=== PATIENT | female | born 2000 | race Caucasian/White ===

== ENCOUNTER 2020-10-12 12:13 | Emergency (ER) | payer MEDICAID, SELFPAY ==
--- NOTE | ~2020-10-12 | XR_ITS ---
EXAMINATION: XR CHEST CLINICAL INFORMATION: Pain. COMPARISON: None TECHNIQUE: 2 views of the chest were obtained. FINDINGS: No significant abnormality is noted involving the heart, lungs, mediastinum, bony thorax or soft tissues. XR/XR chest 2V IMPRESSION: Unremarkable examination.
[2020-10-12 12:51] VITALS: BP 114/69; PULSE 89; RESP 16; TEMP 37; O2SAT 99; BMI 29.6
--- NOTE | 2020-10-12 13:39 | ED_ITS ---
HPI - General Adult General Chief complaint: General Medical Stated complaint: chest pain Time Seen by Provider: 10/12/20 13:39 History of Present Illness HPI narrative: Patient complains of left-sided chest pain worse with certain movements deep breath when she lays on that side and when she touches the area, denies any shortness of breath no rash no control pills no leg pain or calf pain Related Data Previous Rx's Medication Instructions Recorded ibuprofen 600 mg PO Q6H PRN #20 tab 10/12/20 Allergies Allergy/AdvReac Type Severity Reaction Status Date / Time No Known Allergies Allergy Verified 10/12/20 12:53 Review of Systems Review of Systems: General appearance comfortable no acute distress Head is normocephalic atraumatic Neck is supple The chest wall did have tenderness to the anterior chest wall on the left side, pain is reproduced with deep breath and movement The lungs were clear to auscultation bilateral with symmetric equal breath sounds Heart no murmur The abdomen soft nontender Extremities full range of motion x4 There is no calf swelling or tenderness There is no pedal edema No skin rash No motor or sensory deficit Yes all other systems are reviewed and are negative [facility] Past Medical History Medical History (Updated 10/13/20 @ 00:01 by Rico Forman) No known health problems Social History Social History Advance Directives: No Advance Directives Information Provided: No Patient : No Physical Exam Vital Signs: Vital Signs: Last Vital Signs Temp 98.6 F 10/12/20 12:51 Pulse 89 10/12/20 12:51 Resp 16 10/12/20 12:51 BP 114/69 10/12/20 12:51 Pulse Ox 99 10/12/20 12:51 Body Mass Index 29.6 Course Course Course Narrative: EKG was a normal sinus rhythm with a rate of 85, normal intervals, QTC was normal, no acute ST changes no acute ischemic changes Chest x-ray was normal no pneumothorax no pneumonia Perc score was 0, patient has no shortness of breath no leg swelling, cardiac unlikely Most likely is inflammation of muscles or cartilage in the chest wall and patient is treated for that and will return any time if worse Discharge Plan Discharge Clinical Impression: Costochondritis Patient Disposition: Home, Self-Care Additional Instructions: EKG did not show any heart abnormality Chest x-ray did not show any lung abnormality Exam is consistent with muscle or cartilage irritation in the chest wall Return any time for any worse condition or concern neck slime follow with your doctor in 2-3 days if not improved Prescriptions: New ibuprofen 600 mg tablet 600 mg PO Q6H PRN (Reason: pain) Qty: 20 RF: 0 Stand Alone Forms: Work/School Release Interventions: ED Discharge Assessment Last Done: 10/12/20 15:15 Discharge Date/Time: 10/12/20 15:16
--- NOTE | 2020-10-12 13:45 | ECG_ITS ---
Test Reason : GENERAL MEDICINE Blood Pressure : / mmHG Vent. Rate : 085 BPM Atrial Rate : 085 BPM P-R Int : 166 ms QRS Dur : 076 ms QT Int : 372 ms P-R-T Axes : 047 060 046 degrees QTc Int : 442 ms Normal sinus rhythm Normal ECG No previous ECGs available Referred By: Demario Arzola Electronically Signed By:MIGNON DUBON
== END 2020-10-12 15:16 | disposition home or self-care (01) ==
PROVIDERS: Emergency Provider Emergency Medicine Emergency Medical Services; PCP Nurse Practitioner Family
DX: M94.0 Chondrocostal junction syndrome [Tietze] (principal)
CPT/HCPCS: 71046; 93005; 99283

== ENCOUNTER 2021-03-18 11:57 | Emergency (ER) | payer MEDICAID, SELFPAY ==
[2021-03-18 12:02] VITALS: BP 115/76; PULSE 85; RESP 16; TEMP 36.9; O2SAT 97; BMI 29.6
[2021-03-18 12:29] LABS: IDNOW Serial# 08D9AD1C; Strep A Nucleic Acid Negative (Negative)
[2021-03-18 13:01] LABS: Influenza A PCR NEGATIVE (Negative); Influenza B PCR NEGATIVE (Negative); Resp Syncy Virus RNA Qual PCR NEGATIVE (Negative); SARS COV2 PCR INHOUSE NEGATIVE (Negative)
--- NOTE | 2021-03-18 15:14 | ED_ITS ---
HPI - General Adult General Chief complaint: General Medical Stated complaint: fever, chest discomfort, back pain, sore throat Time Seen by Provider: 03/18/21 15:14 Source: patient Mode of arrival: ambulatory Limitations: no limitations History of Present Illness HPI narrative: Sore throat, headache and fever starting yesterday. Slight congestion, question of green phlegm. Patient had COVID last 04/20. Patient is vaccinated, rapid test yesterday was negative. Onset (ago): day(s) Associated symptoms: cough, fever/chills and other (sore throat) Related Data Previous Rx's Medication Instructions Recorded ibuprofen 600 mg tablet 600 mg PO Q6H PRN #20 tab 10/12/20 Allergies Allergy/AdvReac Type Severity Reaction Status Date / Time No Known Allergies Allergy Verified 10/12/20 12:53 Review of Systems Constitutional: Constitutional: Reports no additional constitutional complaints Eyes: Eyes: Reports no additional eye complaints ENT: Denies dizziness Cardiovascular: Cardiovascular: Reports no additional cardiovascular c omplaints Respiratory: Respiratory: Reports as per HPI Gastrointestinal: Gastrointestinal: Reports no additional gastrointestinal complaints Genitourinary: Genitourinary: Reports no additional female genitourinary complaints Musculoskeletal: Musculoskeletal: Reports no additional musculoskeletal complaints Integumentary/Breasts: Skin/Breast: Denies rash Neurologic: Reports system reviewed and no additional complaints, except as documented, Denies dizziness and Denies Sensory deficit (Neuro) Psychiatric: Psychiatric: Denies anxiety [facility] Past Medical History Medical History (Updated 03/18/21 @ 15:21 by João Lemus MD) No known health problems Social History Social History Advance Directives: No Advance Directives Information Provided: No Patient : No Physical Exam Vital Signs: Vital Signs: Last Vital Signs Temp 98.4 F 03/18/21 12:02 Pulse 85 03/18/21 12:02 Resp 16 03/18/21 12:02 BP 115/76 03/18/21 12:02 Pulse Ox 97 03/18/21 12:02 Body Mass Index 29.6 Const: General: healthy appearing Nutritional Appearance: average body habitus Orientation/consciousness: oriented to person and patient oriented x3 Limitations: no limitations HENMT: Head: Yes normal to inspection Ears: external ears normal General nose exam: Normal external nose present Mouth: Normal oral and palatal mucosa present and oropharynx normal Throat: Yes posterior oropharynx normal Eyes: General: appearance normal, both eyes and all related structures Neck: Other: supple Neck: Yes normal visual inspection Chest: Chest palpation & inspection: normal inspection of the chest Resp: Auscultation: clear to auscultation bilaterally Cardio: Jugular venous distension: no JVD Rate: regular rate Rhythm: regular rhythm Heart sounds: S1 normal heart sound present and S2 normal heart sound present GI: Inspection: Yes normal to inspection Palpation (GI): Soft to palpation, nontender and No hepatosplenomegaly present Auscultation: normal bowel sounds : General: Yes no CVA tenderness Back/Spine/Pelvis: Back: no CVA tenderness Skin: General skin exam: no rashes or lesions noted Neuro: General: oriented to person and patient oriented x3 Cranial nerves: Yes CN's II-XII intact bilaterally Motor exam (neuro): 5/5 motor strength present throughout Sensory Exam: No Sensory deficit (Neuro) Extrem: General: Yes normal to inspection Psych: Appearance: grossly normal Course Reevaluation(s) Reevaluation #1: patient with viral illness, RSV, COVID and flu and strep all negative will dc home Time: 15:20 Medical Decision Making Lab Data Labs: Lab Results 03/18/21 03/18/21 Range/Units 12:07 12:08 Influenza Type A (PCR) NEGATIVE (Negative) Influenza Type B (PCR) NEGATIVE (Negative) RSV RNA Qual (PCR) NEGATIVE (Negative) SARS-CoV-2 RNA (RT-PCR) NEGATIVE (Negative) S. pyogenes GrpA TIMMY Negative (Negative) Discharge Plan Discharge Clinical Impression: Upper respiratory infection Qualifiers: URI type: unspecified URI Qualified Code(s): J06.9 - Acute upper respiratory infection, unspecified Patient Disposition: Home, Self-Care Instructions: Upper Respiratory Infection (ED), Viral Syndrome (ED) Prescriptions: No Action ibuprofen 600 mg tablet 600 mg PO Q6H PRN (Reason: pain) Qty: 20 RF: 0 Referrals: Physician,Unknown J [Primary Care Provider] - 1 week
[2021-03-18 15:31] VITALS: BP 113/64; PULSE 84; RESP 16; TEMP 36.7; O2SAT 98
== END 2021-03-18 15:33 | disposition home or self-care (01) ==
PROVIDERS: Emergency Provider Emergency Medicine
DX: J06.9 Acute upper respiratory infection, unspecified (principal); Z20.822 Contact with and (suspected) exposure to COVID-19
CPT/HCPCS: 0241U; 36415; 87651; 99283; 99284

== ENCOUNTER 2021-05-21 10:12 | Emergency (ER) | payer MEDICAID, SELFPAY ==
[2021-05-21 10:27] VITALS: BP 129/74; PULSE 101; RESP 16; TEMP 36.7; O2SAT 97; BMI 30.2
--- NOTE | 2021-05-21 10:35 | ED.GENADULT ---
HPI - General Adult General Chief complaint: Upper Respiratory Symptoms Stated complaint: sore throat/fever Time Seen by Provider: 05/21/21 10:22 Source: patient Limitations: no limitations History of Present Illness HPI narrative: Patient presents the ER with sore throat cough fever chills body aches the nasal and head congestion x2 days recent COVID-19 exposure. Patient has longstanding history of reflux disease which takes Pepcid for. Patient complaining of sore throat pain that increases with swallowing is 7/10. Currently no nausea vomiting at this time. Positive fever and chills. Symptoms are moderate. Related Data Previous Rx's Medication Instructions Recorded ibuprofen 600 mg tablet 600 mg PO Q6H PRN #20 tab 10/12/20 amoxicillin 500 mg capsule 500 mg PO TID 10 Days #30 cap 05/21/21 Allergies Allergy/AdvReac Type Severity Reaction Status Date / Time No Known Allergies Allergy Verified 10/12/20 12:53 Review of Systems Constitutional: Constitutional: Reports body ache(s), Reports chills, Reports fatigue, Reports fever(s) and Reports headache(s) Eyes: Eyes: Denies change in vision ENT: Reports headache(s), Reports nasal congestion and Reports sore throat Cardiovascular: Cardiovascular: Denies chest pain and Denies dyspnea Respiratory: Respiratory: Reports chest congestion and Denies dyspnea Gastrointestinal: Gastrointestinal: Denies diarrhea, Denies nausea and Denies vomiting Musculoskeletal: Musculoskeletal: Denies back pain Neurologic: Reports headache(s) Endocrine: Endocrine: Reports fatigue PMFSH Past Medical History Attestation statement: The following information was validated with the patient. Medical History No known health problems Social History Social History Advance Directives: No Advance Directives Information Provided: No Patient : No Physical Exam Vital Signs: Vital Signs: Last Vital Signs Temp 98.1 F 05/21/21 10:27 Pulse 101 H 05/21/21 10:27 Resp 16 05/21/21 10:27 BP 129/74 05/21/21 10:27 Pulse Ox 97 05/21/21 10:27 BMI result Body Mass Index 30.2 vital signs have been reviewed as normal and appeared to be correct. Blood pressure normal. Heart rate normal. Respiration rate normal. Temperature normal. Oxygen saturation normal. Appearance: Alert. Oriented X3. No acute distress. Head: Normal external exam. Normocephalic. Atraumatic. Eyes: PERRLA. EOMI. Conjunctiva and sclera normal. Eyelids normal. ENT: pharynx is erythematous no exudate postnasal drip noted no peritonsillar abscess uvula is midline mucosa is moist Neck: Soft full range of motion CVS: Heart regular rate and rhythm no murmurs and rubs Respiratory: Breath sounds are clear to auscultation bilaterally. No accessory muscle use noted. Back: Full range of motion noted. Skin: Skin warm and dry. Normal skin color. Normal skin turgor. No rashes/lesions/lacerations noted. Extremities: patient moving all extremities purposely ambulatory Neuro: Oriented X 3. No motor deficit. No sensory deficit. Reflexes normal. Course Course Course Narrative: Acute pharyngitis COVID-19 Viral URI COVID-19 swab obtained throat culture obtained patient is fully vaccinated but not boosted. Patient's O2 sat is 97% on room air patient is in no acute distress nontoxic in appearance 11:21 a.m. patient's throat cultures positive for group a strep negative COVID-19. Plan is discharge patient home on antibiotics Medical Decision Making Lab Data Labs: Lab Results 05/21/21 05/21/21 Range/Units 10:46 10:46 COVID-19 (DELMY) Negative (Negative) COVID-19 Clin Com See Note S. pyogenes GrpA TIMMY Positive A (Negative) Discharge Plan Discharge Clinical Impression: Pharyngitis Qualifiers: Pharyngitis/tonsillitis etiology: streptococcus Qualified Code(s): J02.0 - Streptococcal pharyngitis Patient Disposition: Home, Self-Care Instructions: Pharyngitis (ED) Additional Instructions: COVID-19 test is negative throat cultures positive strep throat increase fluids rest warm salt water gargles Prescriptions: New amoxicillin 500 mg capsule 500 mg PO TID 10 Days Qty: 30 RF: 0 No Action ibuprofen 600 mg tablet 600 mg PO Q6H PRN (Reason: pain) Qty: 20 RF: 0 Stand Alone Forms: Work/School Release
[2021-05-21 11:03] LABS: Strep A Nucleic Acid Positive (Negative)
[2021-05-21 11:17] LABS: COVID-19 Test Negative (Negative)
== END 2021-05-21 11:50 | disposition home or self-care (01) ==
PROVIDERS: Physician Assistant; Emergency Provider Emergency Medicine Emergency Medical Services; PCP Nurse Practitioner Family
DX: J02.0 Streptococcal pharyngitis (principal); Z20.822 Contact with and (suspected) exposure to COVID-19
CPT/HCPCS: 36415; 87635; 87651; 99283